=== PATIENT | female | born 1995 | race Caucasian/White ===

== ENCOUNTER → 2020-02-01 15:36 | Outpatient (POV) | payer BC, SELFPAY | PROVIDERS: PCP Dermatology; Visit Provider Dermatology | DX: Z00.00 Encounter for general adult medical examination without abnormal findings (principal) ==

== ENCOUNTER 2020-05-29 13:36 | Emergency (ER) | payer BC, SELFPAY ==
[2020-05-29 14:00] VITALS: BP 130/70; PULSE 100; RESP 20; TEMP 36.6; O2SAT 100; BMI 23.1
--- NOTE | 2020-05-29 14:38 | HMH.EDUTC ---
[facility] [place] Clinical Impression: Laceration of index finger Qualifiers: Encounter type: initial encounter Damage to nail status: without damage Foreign body presence: without foreign body Laterality: left Qualified Code(s): S61.211A - Laceration without foreign body of left index finger without damage to nail, initial encounter Disposition: Home, Self-Care Condition on Discharge: Good Instructions: DI for Laceration Repair With Dermabond Additional Instructions: Keep the wound clean and dry. Keep a dressing on it if you are going to be getting it dirty. Watch the for signs of infection, such as redness, swelling, drainage, fever. etc. Take tylenol or ibuprofen for pain. Follow up with her regular doctor. GO TO THE ER FOR ANY WORSENING SYMPTOMS OR CONCERNS. Referrals: Ama Rosa APRN [Primary Care Provider] - Time of Disposition: 14:40 Medical Decision Making - Medical Records Medical records reviewed: No: I reviewed the patient's medical records. - Jorge Inquiry Pt receiving controlled substance: No Vital Signs: 05/29/20 14:00 05/29/20 14:43 Temperature 97.9 F 97.9 F Temperature Source Oral Pulse Rate 100 H Pulse Rate [Right Brachial] 100 H Respiratory Rate 20 20 Blood Pressure 130/70 Blood Pressure [Right Arm] 130/70 Blood Pressure Mean [Right Arm] 90 Blood Pressure Source [Right Arm] Automatic Cuff Blood Pressure Position [Right Arm] Sitting 02 Sat by Pulse Oximetry 100 Oxygen Delivery Method Room Air Orders (Tests/Meds): ED MEDICATIONS Discontinued Medications Generic Name Dose Route Start Last Admin Trade Name Freq PRN Reason Stop Dose Admin Tetanus/Reduced Diphtheria/Acell Pertussis 0.5 ml 05/29/20 14:23 05/29/20 14:30 Adacel Tdap 0.5ml Syringe IM 05/29/20 14:24 0.5 ml .ONCE ONE Administration [facility] [place] - General Stated complaint: AO [id number] lac to right index finger Time Seen by Provider: 05/29/20 14:00 Mode of Arrival: Ambulatory Source of Information: Patient Limitations: No Limitations Description of Symptoms (Recalled from Triage Doc. by RN): PATIENT C/O LACERATION TO FINGER AFTER IT WENT THROUGH A DOOR FRAME HEENT Symptoms (Recalled from RN notes): No Resp Symptoms (Recalled from RN notes): No Skin Symptoms (Recalled from RN notes): Yes MS Symptoms (Recalled from RN notes): No Functional Status (Recalled from RN notes): WNL - History of Present Illness Provider Complaint: She states that she was knocking on her front door to try wake her up so she could get in. She states that the glass broke and it cut her left index finger. Since then she has had bleeding from a laceration on the dorsal aspect of her index finger. - Related Data Home Medications Medication Instructions Recorded Confirmed No Known Home Medications 11/14/19 05/29/20 Allergies Allergy/AdvReac Type Severity Reaction Status Date / Time nitrofurantoin Allergy Verified 01/25/20 15:59 [From Macrobid] - Worker's Comp Is this a Worker's Comp case?: No [facility] History - Hepatitis A Screen Drug use history?: No High risk sexual behaviors?: No History of sexually transmitted infection?: No Currently employed?: No Childcare worker?: No Do you have indoor plumbing?: Yes Do you have electricity?: Yes Attestation statement:: This patient has been screened for Hepatitis A risk factors. I have reviewed the patient's past medical history: Yes Laterality Cases: Left: Arthroscopy Knee, Bilateral: Tonsillectomy Other Surgeries: Yes: Dilation and Curettage Comment: MOISES - Social History Smoking Status: Never smoker Alcohol Intake: never Alcohol Intake Frequency:: holidays/special occasions only Substance Use Type: denies use Occupational Status: other Housing: house Household Members: family Family Hx:: Non-contributory ROS Obtained: Yes All systems reviewed & no additional complaints - Constitutional Constitutional
[2020-05-29 14:43] VITALS: BP 130/70; PULSE 100; RESP 20; TEMP 36.6; O2SAT 100
== END 2020-05-29 14:45 | disposition home or self-care (01) ==
PROVIDERS: Emergency Provider Nurse Practitioner Family; PCP Nurse Practitioner Family
DX: S61.211A Laceration without foreign body of left index finger without damage to nail, initial encounter (principal); W25.XXXA Contact with sharp glass, initial encounter; Y92.019 Unspecified place in single-family (private) house as the place of occurrence of the external cause; Z23 Encounter for immunization
CPT/HCPCS: 12001; 90471; 90715; 99201